=== PATIENT | male | born 1950 | race Two or more races ===

== ENCOUNTER 2020-01-13 15:27 | Emergency (ER) | payer OTHER ==
[~2020-01-13] VITALS: Ht 162.6 cm; Wt 75.8 kg
[2020-01-13 17:20] LABS: BASOPHILS # (AUTO) 0.03 x10^3/uL (0-0.1); BASOPHILS % (AUTO) 1 % (0-1); EOSINOPHILS # (AUTO) 0.08 x10^3/uL (0-0.4); EOSINOPHILS % (AUTO) 1 % (1-7); LYMPHOCYTES # (AUTO) 1.34 x10^3/uL (1-3.4); LYMPHOCYTES % (AUTO) 23 % (22-44); MD NO; MEAN CORPUSCULAR HEMOGLOBIN 32.6 pg (27.5-34.5); MEAN CORPUSCULAR HGB CONC 34.1 g/dL (33.2-36.2); MEAN CORPUSCULAR VOLUME 95.5 fL (81-97); MEAN PLATELET VOLUME 8.6 fL (7.4-10.4); MONOCYTES # (AUTO) 0.52 x10^3/uL (0.2-0.8); MONOCYTES % (AUTO) 9 % (2-9); NEUTROPHILS % (AUTO) 66 % (42-75); PLATELET COUNT 212 x10^3/uL (130-400); RED BLOOD COUNT 4.58 x10^6/uL (4.38-5.82); RED CELL DISTRIBUTION WIDTH 13.3 % (9.4-14.8)
--- NOTE | 2020-01-13 17:26 | NUR ---
FROM LOBBY TO ROOM AT THIS TIME. GIVEN URINE CUP TO OBTAIN SAMPLE
[2020-01-13 17:29] LABS: ANION GAP 7 mmol/L (5-15); CALCIUM 8.5 mg/dL (8.5-10.1); CHLORIDE 110 mmol/L (98-107); CREATININE 0.73 mg/dL (0.7-1.3)
--- NOTE | 2020-01-13 17:33 | NUR ---
UA COLLECTED AND SENT
[2020-01-13 17:41] LABS: MICROSCOPIC NOT IND
[2020-01-13 17:42] LABS: CULTURE INDICATED? NO
[2020-01-13 17:52] VITALS: BP 159/86
== END 2020-01-13 18:36 | disposition home or self-care (01) ==
LOC: ED 18:20
DX: R31.0 Gross hematuria (principal)
CPT/HCPCS: 36415; 80048; 81003; 85025; 99283